=== PATIENT | female | born 1960 | race Caucasian/White ===

== ENCOUNTER → 2016-06-04 | Day surgery (SDC) | payer MEDICARE, MEDICAID ==
[~2016-06-04] VITALS: Ht 157.5 cm; Wt 52.5 kg
[~2016-06-04] MED LIST: ACETAMINOPHEN 1000 MG/100 ML VIAL IV ONE; ACETAMINOPHEN/HYDROcodone 325 MG/5 MG TAB PO PRN; AMPICILLIN 1 GM/NS 100 ML IV SCH; BACT800T5 PO; BELLADONNA ALKALOIDS/OPIUM 60 MG SUPP RECTAL ONE; CITA40TA4 PO; DEXAMETHASONE SOD PHOS 4 MG/ML VIAL ONE; DICLOFENAC SODIUM 37.5 MG/ML VIAL IV PUSH ONE; DO NOT ADM ANY ANTICOAGULANT DRUGS XX PRN; ESTR1TAB PO; FAMOTIDINE 20 MG/2 ML VIAL ONE; GENTAMICIN INJ 240 MG in SODIUM CHLORIDE 0.9% INJ 100 ML IV SCH; INSULIN HUMAN REGULAR 1,000 UNITS/10 ML VIAL SQ PRN; IOHEXOL 350 MG/ML 50 ML BTL (for RAD DIAG) OTHER ONE; LACTATED RINGER'S 1000 ML IV SCH; METOPROLOL TARTRATE 25 MG TAB PO PRN; MIDAZOLAM HCL 2 MG/2 ML VIAL ONE; MORPHINE SULFATE 4 MG/ML INJ IV PRN; NEOSTIGMINE 3 MG/3 ML SYR IV ONE; ONDANSETRON HCL 4 MG/2 ML VIAL IV PUSH ONE; ONDANSETRON HCL 4 MG/2 ML VIAL IV PUSH PRN; PERC5TAB12 PO; PROPOFOL 200 MG/20 ML AMP IV ONE; SODIUM CHLORID 0.9% 500 ML IV SCH; ePHEDrine/NS 50 MG/5 ML SYR IV ONE; fentaNYL CITRATE 250 MCG/5 ML AMP ONE
[2016-06-04 10:37] VITALS: BP 132/91; PULSE 72; RESP 16; TEMP 98.2; O2SAT 97
[2016-06-04 11:03] LABS: AUTOMATED NEUTROPHIL # 4.7 TH/MM3 (1.8-7.7); BASOPHIL # 0.1 TH/MM3 (0-0.2); BASOPHIL % 1.2 % (0.0-2.0); EOSINOPHIL # 0.5 TH/MM3 (0-0.4); EOSINOPHIL % 5.4 % (0.0-4.0); HEMATOCRIT 42.1 % (35.0-46.0); HEMO FLAGS DIFF FINAL; LYMPH % 30.1 % (9.0-44.0); LYMPHOCYTE # 2.5 TH/MM3 (1.0-4.8); MEAN CELL VOLUME 90.4 FL (80.0-100.0); MEAN CORPUSCULAR HEMOGLOBIN 30.8 PG (27.0-34.0); MEAN CORPUSCULAR HGB CONC 34.1 % (32.0-36.0); MONO % 7.1 % (0.0-8.0); NEUT % 56.2 % (16.0-70.0); PLATELET COUNT 299 TH/MM3 (150-450); RED BLOOD COUNT 4.65 MIL/MM3 (4.00-5.30); RED CELL DISTRIBUTION WIDTH 14.1 % (11.6-17.2); WHITE BLOOD COUNT 8.4 TH/MM3 (4.0-11.0)
[2016-06-04 11:21] LABS: BICARBONATE 28.6 MEQ/L (21.0-32.0); POTASSIUM 4.1 MEQ/L (3.5-5.1)
[2016-06-04 17:35] VITALS: BP 116/63; PULSE 90; RESP 16; TEMP 97.7; O2SAT 97
--- NOTE | 2016-06-10 07:17 | MP ---
cc: SAHIL LILLY DATE OF SURGERY: 06/04/2016 PREOPERATIVE DIAGNOSIS Bilateral renal calculi. POSTOPERATIVE DIAGNOSIS Bilateral renal calculi. PROCEDURE Cystoscopy, bilateral ureteroscopy, laser lithotripsy, stone extraction with bilateral double-J stent change. SURGEON Steve ANESTHESIA General endotracheal. FLUIDS One liter crystalloid. ESTIMATED BLOOD LOSS No blood loss. COMPLICATIONS No complications. SPECIMENS Stones. DRAINS Two bilateral 6-Kazakh, 24 cm stents. CONDITION She tolerated the procedure and was transferred to Recovery in stable addition. INDICATION Wily Schuler is a 56-year-old female with a history of bilateral renal calculi. She underwent ESWL x2 on the left and x1 on the right. She also has bilateral ureteral stents in place. After multiple ESWL therapy there are still residual stones in both collecting systems. Decision was made to bring the patient to the operating room to undergo cystoscopy, bilateral ureteroscopy, laser lithotripsy and stone extraction and stent change. The risks and benefits were discussed and she was willing to proceed. DETAILS OF PROCEDURE The patient was brought to the operating room, identified by myself as Wily Schuler. She was placed in the dorsal lithotomy position, prepped and draped in the usual sterile fashion, received preprocedure antibiotics, and general endotracheal tube anesthesia was administered. A 22-Kazakh cystoscope was inserted bladder. The right ureteral stent was identified. Using an alligator grasper forceps the stent was brought to the urethral meatus. An 0.035 Sensor wire was then passed through the stent and the wire curled in the kidney. The stent was removed over the wire. Using an ureteral access sheath this was then passed over the wire. A flexible ureteroscope was then passed through the ureteral access sheath and then the stone fragments were then retrieved. 200 micron laser fiber was used to fragment any fragments in the kidney until they were small enough to be removed. Multiple stone extractions were performed using the nitinol basket. Once the right kidney was cleared, an 0.035 Sensor wire was then passed up into the collecting system and then the ureteral access sheath was removed. The cystoscope was back-loaded over the wire and then a 24 cm, 6-Kazakh right double-J stent was placed with a good curl in the kidney and a good curl in the bladder. The cystoscope was then reinserted into the bladder and the left ureteral stent was identified. It was grasped with the alligator grasper and then pulled to the urethral meatus. An 0.035 Sensor wire was then passed through the stent with a good curl in the kidney and then the stent was removed over the wire. The ureteral access sheath was then passed over this wire. The wire was then removed. The Apollidon flexible ureteroscope was then passed through the ureteral access sheath and a few stones were identified. Using the nitinol basket, the stones were retrieved. No further stones were identified and then the wire was passed through the ureteral access sheath and the ureteral access sheath was removed. Leaving the wire in place, the cystoscope was back-loaded over the wire and then a 6-Kazakh, 24-cm left double-J stent was placed with a good curl in the kidney and a good curl in the bladder. She was awoken and transferred to the recovery room in stable condition. She will follow-up in the office in 2 weeks to obtain a KUB prior. If no stones are present on the KUB, will undergo cystoscopy with bilateral double-J stent removal. Sahil RODRIGUES/BT /3:50 PM /7:01 AM
== END | disposition home or self-care (01) ==
LOC: HSDC 09:57
PROVIDERS: ATTEND Urology
DX: N20.0 Calculus of kidney (principal); Z87.442 Personal history of urinary calculi
CPT/HCPCS: 00918; 52356; 74420; 80048; 82370; 85025; 88300; C1769; C2617; J0131; J0290; J1100; J1130; J1580; J2250; J2405; J2710; J3010; J7120; Q9967